=== PATIENT | male | born 1990 | race African-American/Black ===

== ENCOUNTER 2022-04-14 07:59 | Emergency (ER) | payer MEDICAID ==
[~2022-04-14] VITALS: Ht 175.3 cm; Wt 73.0 kg
[~2022-04-14 07:59] MED LIST: DEPAKOTE
[2022-04-14 08:00] VITALS: BP 140/90
== END 2022-04-14 08:45 | disposition left against medical advice (07) ==
LOC: ER 07:59
DX: R56.9 Unspecified convulsions (principal)
CPT/HCPCS: 99283